=== PATIENT | male | born 1970 | race Caucasian/White ===

== ENCOUNTER 2019-01-06 10:12 | Inpatient (IN) | payer MEDICAID ==
[~2019-01-06] VITALS: Ht 172.7 cm; Wt 68.0 kg
[2019-01-06 12:02] LABS: BASOPHIL % 0.3 % (0-2); PLATELET COUNT 247 x10^3mcL (130-400); RED CELL DISTRIBUTION WIDTH 13.4 % (11.5-14.5)
[2019-01-06 12:04] LABS: CALCIUM 8.8 mg/dL (8.5-10.1); CHLORIDE SERUM 102 mmol/L (98-107); CREATININE SERUM 0.9 mg/dL (0.7-1.3); GFR1 > 60 mL/min; GLUCOSE SERUM 92 mg/dL (74-106); POTASSIUM SERUM 4.6 mmol/L (3.5-5.1); SODIUM SERUM 139 mmol/L (136-145)
[2019-01-06 12:16] LABS: ALBUMIN 3.8 g/dL (3.4-5.0); ALKALINE PHOSPHATASE 117 U/L (46-116); ALT/SGPT 49 U/L (16-63); AST/SGOT 61 U/L (15-37); BILIRUBIN TOTAL 0.6 mg/dL (0.20-1.00); TOTAL PROTEIN, SERUM 7.5 g/dL (6.4-8.2)
[2019-01-06 12:22] LABS: T4(THYROXINE) 4.5 ug/dL (4.7-13.3)
[2019-01-06 12:55] LABS: AMPHETAMINE QUAL UR NONE DETECTED (See below)
[2019-01-07 16:46] VITALS: BP 118/85
[2019-01-07 19:44] VITALS: BP 118/85
[2019-01-07 20:31] VITALS: BP 120/81
[2019-01-08 05:38] VITALS: BP 126/83
[2019-01-08 06:42] LABS: CALCIUM 9.2 mg/dL (8.5-10.1); CARBON DIOXIDE 26.5 mmol/L (21-32); CHLORIDE SERUM 104 mmol/L (98-107); CREATININE SERUM 0.9 mg/dL (0.7-1.3); GFR1 > 60 mL/min; GLUCOSE SERUM 92 mg/dL (74-106); POTASSIUM SERUM 3.7 mmol/L (3.5-5.1); SODIUM SERUM 141 mmol/L (136-145)
[2019-01-08 06:44] LABS: PLATELET COUNT 225 x10^3mcL (130-400); RED CELL DISTRIBUTION WIDTH 13.5 % (11.5-14.5)
[2019-01-08 08:25] VITALS: BP 113/68
[2019-01-08 16:23] VITALS: BP 112/79
[2019-01-08 20:59] VITALS: BP 102/66
[2019-01-08 21:01] VITALS: BP 102/66
[2019-01-09 05:06] VITALS: BP 103/72
[2019-01-09 10:37] VITALS: BP 118/85
== END 2019-01-09 10:53 | disposition home or self-care (01) | DRG 754 ==
LOC: ED 10:12 → MU 01-07 12:11
PROVIDERS: Emergency Medicine; ADMIT General Practice
DX: F32.9 Major depressive disorder, single episode, unspecified (principal); R45.851 Suicidal ideations; F10.10 Alcohol abuse, uncomplicated; F12.10 Cannabis abuse, uncomplicated; F17.210 Nicotine dependence, cigarettes, uncomplicated
CPT/HCPCS: 90658; G0378; G0480; Q0092

== ENCOUNTER 2020-05-15 15:58 | Emergency (ER) | payer MEDICAID ==
[~2020-05-15] VITALS: Ht 177.8 cm; Wt 77.6 kg
[2020-05-15 16:10] VITALS: BP 114/75; Ht 177.8 cm; Wt 77.6 kg
[2020-05-15] MEDS ORDERED: TYL500 PO (17:56)
[2020-05-15] MEDS ORDERED: MOT600 PO (17:56)
== END 2020-05-15 18:10 | disposition home or self-care (01) ==
LOC: ED 15:58
DX: M25.561 Pain in right knee (principal); M25.562 Pain in left knee; Z88.5 Allergy status to narcotic agent